=== PATIENT | female | born 1955 | race Caucasian/White ===

== ENCOUNTER → 2016-03-22 | Outpatient (CLI) | payer SELFPAY ==
[~2016-03-22] MED LIST: ASPI1TAB69 PO; ATOR1TAB18 PO; CLON0.5T PO; FLUO10CA5 PO; LEVO50TA4 PO; LISI-515 PO; METF500T PO; NORC5TAB PO; PROM12.54 PO; RANI150C PO; VALP250C PO
[2016-03-22 12:13] LABS: BASOPHIL % 0.9 % (0.0-2.0); EOSINOPHIL # 0.1 TH/MM3 (0-0.4); EOSINOPHIL % 2.6 % (0.0-4.0); HEMATOCRIT 39.8 % (35.0-46.0); HEMO FLAGS DIFF FINAL; LYMPH % 36.7 % (9.0-44.0); MEAN CORPUSCULAR HEMOGLOBIN 26.8 PG (27.0-34.0); MEAN CORPUSCULAR HGB CONC 32.7 % (32.0-36.0); MONO % 5.7 % (0.0-8.0); NEUT % 54.1 % (16.0-70.0); PLATELET COUNT 311 TH/MM3 (150-450); RED BLOOD COUNT 4.86 MIL/MM3 (4.00-5.30); RED CELL DISTRIBUTION WIDTH 14.5 % (11.6-17.2); WHITE BLOOD COUNT 5.5 TH/MM3 (4.0-11.0)
[2016-03-22 12:57] LABS: ALKALINE PHOSPHATASE 60 U/L (45-117); ALT (GPT) 15 U/L (10-53); ANION GAP 8 MEQ/L (5-15); AST (GOT) 11 U/L (15-37); BICARBONATE 31.7 MEQ/L (21.0-32.0); BLOOD UREA NITROGEN 11 MG/DL (7-18); CHLORIDE 101 MEQ/L (98-107); GLOMERULAR FILTRATION RATE 100 ML/MIN (>89); GLUCOSE,FASTING 83 MG/DL (74-99); POTASSIUM 3.5 MEQ/L (3.5-5.1); SODIUM (NA) 141 MEQ/L (136-145); TOTAL BILIRUBIN ADULT 0.6 MG/DL (0.2-1.0)
[2016-03-22 16:59] LABS: HEMOGLOBIN A1b 0.9 %; HEMOGLOBIN F 0.8 %
[2016-03-22 17:00] LABS: HEMOGLOBIN Ao 85.5 %; HEMOGLOBIN P3 3.7 %
== END ==
LOC: ELAB 09:48
PROVIDERS: ATTEND Internal Medicine Geriatric Medicine
DX: E03.9 Hypothyroidism, unspecified (principal); E11.9 Type 2 diabetes mellitus without complications
CPT/HCPCS: 36415; 80053; 83036; 84443; 85025

== ENCOUNTER → 2017-01-19 | Outpatient (CLI) | payer MEDICAID, OTHER ==
[~2017-01-19] MED LIST changes: +ASPI-516 CHEW; -ASPI1TAB69 PO; -ATOR1TAB18 PO; +ATOR80TA45 PO; -CLON0.5T PO; +FLU60SYR17 IM; -FLUO10CA5 PO; -METF500T PO
[2017-01-19 11:54] LABS: MEAN CELL VOLUME 85.6 FL (80.0-100.0); MEAN CORPUSCULAR HGB CONC 32.6 % (32.0-36.0); PLATELET COUNT 296 TH/MM3 (150-450); RED BLOOD COUNT 4.67 MIL/MM3 (4.00-5.30); RED CELL DISTRIBUTION WIDTH 14.4 % (11.6-17.2); REVIEW FLAG FINAL; WHITE BLOOD COUNT 9.8 TH/MM3 (4.0-11.0)
[2017-01-19 11:58] LABS: AST (GOT) 15 U/L (15-37)
[2017-01-19 12:02] LABS: ALKALINE PHOSPHATASE 70 U/L (45-117); ALT (GPT) 16 U/L (10-53); INDIRECT BILIRUBIN 0.3 MG/DL (0.0-0.8); TOTAL BILIRUBIN ADULT 0.4 MG/DL (0.2-1.0)
[2017-01-19 19:45] LABS: HEMOGLOBIN A1b 0.9 %; HEMOGLOBIN Ao 84.3 %; HEMOGLOBIN F 0.9 %; HEMOGLOBIN LA1C 2.2 %
== END ==
LOC: ELAB 09:57
PROVIDERS: ATTEND Specialist
DX: E11.9 Type 2 diabetes mellitus without complications (principal); Z51.81 Encounter for therapeutic drug level monitoring; G60.9 Hereditary and idiopathic neuropathy, unspecified; R53.81 Other malaise
CPT/HCPCS: 36415; 80076; 80164; 83036; 85027

== ENCOUNTER 2017-05-06 13:01 | Emergency (ER) | payer MEDICARE, MEDICAID ==
[~2017-05-06] VITALS: Ht 152.4 cm; Wt 59.5 kg
[~2017-05-06 13:01] MED LIST changes: -FLU60SYR17 IM; +TRAM50TA PO
[2017-05-06 13:02] VITALS: BP 137/74; PULSE 76; RESP 12; TEMP 98.2; O2SAT 97
[2017-05-06 13:24] VITALS: BP 175/70; PULSE 66; RESP 18; O2SAT 97
[2017-05-06] MEDS ORDERED: FLUO10TA PO (13:29)
[2017-05-06] MEDS ORDERED: SODIUM CHLORIDE 0.9% FLUSH 10 ML FLUSH IVF PRN (14:30)
--- NOTE | 2017-05-06 14:36 | PD ---
HPI Chief Complaint: General Weakness Time Seen by Provider: 13:43 Travel History International Travel<30 days: No Contact w/Intl Traveler<30days: No Traveled to known affect area: No History of Present Illness HPI Patient is a 61-year-old female with a history of stroke leaving left-sided deficits presents emergency department for evaluation of generalized weakness for the past 48 hours. Patient states that she did not think anything of it and when she told her son about it she recommended that he come to the emergency department to be checked out. Patient denies any pain anywhere, denies any new focalized weakness. States that she has significant right-sided deficits and right leg and arm deficits after her stroke versus some time ago. States she is usually wheelchair bound. Denies any fevers cough congestion nausea vomiting dysuria. States that she is fairly incontinent of stool at baseline and does wear a diaper. She states occasionally she has been incontinent of urine. States symptoms are mild, duration context and associated signs and symptoms as above per [facility] Past Medical History Hx Anticoagulant Therapy: No Arthritis: Yes (bilateral hands) Asthma: No Autoimmune Disease: No Blood Disorders: No Anxiety: Yes Depression: Yes Heart Rhythm Problems: No Cancer: Yes (neck cancer and nonhodgkins lymphoma ) Cardiovascular Problems: Yes (HTN) High Cholesterol: Yes (hyperlididemia) Chemotherapy: Yes Chest Pain: Yes Congestive Heart Failure: No COPD: No Cerebrovascular Accident: Yes (2014) Diabetes: Yes Diminished Hearing: No Endocrine: Yes Gastrointestinal Disorders: Yes GERD: Yes Genitourinary: Yes (stress incontinence) Headaches: Yes (occasionally ) Hiatal Hernia: No Hypertension: Yes Immune Disorder: No Kidney Stones: No Musculoskeletal: Yes Neurologic: Yes (CVA (left posterior parietal cortical infarct), spinal mennigitis (2013)) Psychiatric: Yes Reproductive: No Respiratory: No Migraines: Yes (occasionally) Radiation Therapy: Yes (with the neck cancer) Renal Failure: No Seizures: Yes Sickle Cell Disease: No Sleep Apnea: No Thyroid Disease: Yes (hypothyroidism) Ulcer: No ?: Unknown : 2 Para: 2 Miscarriage: 0 : 0 Past Surgical History Abdominal Surgery: Yes (gallbladder removed) AICD: No Appendectomy: Yes Arteriovenous Shunt: No Cardiac Surgery: No Cholecystectomy: Yes Ear Surgery: No Endocrine Surgery: No Eye Surgery: No Genitourinary Surgery: No Gynecologic Surgery: Yes (hysterectomy) Hysterectomy: Yes Insulin Pump: No Joint Replacement: Yes (right ankle) Oral Surgery: No Pacemaker: No Thoracic Surgery: No Other Surgery: Yes Social History Alcohol Use: No Tobacco Use: Yes (half pack a day ) Substance Use: No Allergies-Medications (Allergen,Severity, Reaction): Coded Allergies: penicillin G (Unverified Allergy, Intermediate, RASH, 05/06/17) Reported Meds & Prescriptions Reported Meds & Active Scripts Active Keflex (Cephalexin) 500 Mg Capsule 500 Mg PO Q6H 7 Days Atorvastatin (Atorvastatin Calcium) 80 Mg Tab 80 Mg PO HS Lisinopril 20 Mg Tab 20 Mg PO DAILY Ranitidine (Ranitidine HCl) 150 Mg Cap 150 Mg PO HS Levothyroxine (Levothyroxine Sodium) 50 Mcg Tab 50 Mcg PO DAILY [place] (Hydrocodone-Acetaminophen) 5-325 mg Tab 1 Tab PO Q6H PRN Reported Fluoxetine (Fluoxetine HCl) 10 Mg Tab 20 Mg PO DAILY Aspirin 81 Mg Chew 81 Mg CHEW DAILY Valproic Acid 250 Mg Cap 500 Mg PO BID Review of Systems Except as stated in HPI: all other systems reviewed are Neg Physical Exam Narrative GENERAL: Well-developed well-nourished, no obvious distress, quite pleasant SKIN: Focused skin assessment warm/dry. HEAD: Atraumatic. Normocephalic. EYES: Pupils equal and round. No scleral icterus. No injection or drainage. ENT: No nasal bleeding or discharge. Mucous membranes pink and moist. NECK: Trachea midline. No JVD. CARDIOVASCULAR: Regular rate and rhythm. No murmur appreciated. RESPIRATORY: No accessory muscle use. Clear to auscultation. Breath sounds equal bilaterally. GASTROINTESTINAL: Abdomen soft, non-tender, nondistended. Hepatic and splenic margins not palpable. MUSCULOSKELETAL: No obvious deformities. No clubbing. No cyanosis. No edema. NEUROLOGICAL: Awake and alert. Fairly dense right upper and lower extremity weakness, no obvious cranial nerve deficit. Sensation intact. Left upper and left lower extremity have 5 out of 5 strength PSYCHIATRIC: Appropriate mood and affect; insight and judgment normal. Data Data Last Documented VS Vital Signs Date Time Temp Pulse Resp B/P (MAP) Pulse Ox O2 Delivery O2 Flow Rate FiO2 05/06/17 16:24 05/06/17 15:06 98 Room Air 05/06/17 13:24 66 18 05/06/17 13:02 98.2 Orders Orders Complete Blood Count With Diff (05/06/17 14:27) Comprehensive Metabolic Panel (05/06/17 14:27) Magnesium (Mg) (05/06/17 14:27) Prothrombin Time / Inr (Pt) (05/06/17 14:27) Act Partial Throm Time (Ptt) (05/06/17 14:27) Troponin I (05/06/17 14:27) Chest, Single Ap (05/06/17 14:27) Ecg Monitoring (05/06/17 14:27) Iv Access Insert/Monitor (05/06/17 14:27) Oximetry (05/06/17 14:27) Oxygen Administration (05/06/17 14:27) Sodium Chloride 0.9% Flush (Ns Flush) (05/06/17 14:30) Urinalysis - C+S If Indicated (05/06/17 14:27) Us Leg Venous Doppler (05/06/17 14:47) Urine Culture (05/06/17 14:50) Ed Discharge Order (05/06/17 15:41) Labs Laboratory Tests Test 05/06/17 14:39 05/06/17 14:50 White Blood Count 10.5 TH/MM3 Red Blood Count 4.97 MIL/MM3 Hemoglobin 13.9 GM/DL Hematocrit 41.4 % Mean Corpuscular Volume 83.3 FL Mean Corpuscular Hemoglobin 28.0 PG Mean Corpuscular Hemoglobin Concent 33.6 % Red Cell Distribution Width 14.9 % Platelet Count 302 TH/MM3 Mean Platelet Volume 9.3 FL Neutrophils (%) (Auto) 67.8 % Lymphocytes (%) (Auto) 25.2 % Monocytes (%) (Auto) 4.4 % Eosinophils (%) (Auto) 2.0 % Basophils (%) (Auto) 0.6 % Neutrophils # (Auto) 7.1 TH/MM3 Lymphocytes # (Auto) 2.6 TH/MM3 Monocytes # (Auto) 0.5 TH/MM3 Eosinophils # (Auto) 0.2 TH/MM3 Basophils # (Auto) 0.1 TH/MM3 CBC Comment DIFF FINAL Differential Comment Prothrombin Time 12.9 SEC Prothromb Time International Ratio 1.3 RATIO Activated Partial Thromboplast Time 27.3 SEC Blood Urea Nitrogen 14 MG/DL Creatinine 0.62 MG/DL Random Glucose 82 MG/DL Total Protein 7.1 GM/DL Albumin 3.1 GM/DL Calcium Level 8.9 MG/DL Magnesium Level 2.1 MG/DL Alkaline Phosphatase 74 U/L Aspartate Amino Transf (AST/SGOT) 16 U/L Alanine Aminotransferase (ALT/SGPT) 9 U/L Total Bilirubin 0.5 MG/DL Sodium Level 138 MEQ/L Potassium Level 3.7 MEQ/L Chloride Level 102 MEQ/L Carbon Dioxide Level 29.2 MEQ/L Anion Gap 7 MEQ/L Estimat Glomerular Filtration Rate 98 ML/MIN Troponin I 0.04 NG/ML Urine Color LIGHT-YELLOW Urine Turbidity CLEAR Urine pH 6.0 Urine Specific [place] 1.004 Urine Protein NEG mg/dL Urine Glucose (UA) NEG mg/dL Urine Ketones NEG mg/dL Urine Occult Blood NEG Urine Nitrite POS Urine Bilirubin NEG Urine Urobilinogen LESS THAN 2.0 MG/DL Urine Leukocyte Esterase SMALL Urine RBC 1 /hpf Urine WBC 2 /hpf Urine Squamous Epithelial Cells <1 /hpf Urine Bacteria OCC /hpf Microscopic Urinalysis Comment CULTURE INDICATED MDM Medical Decision Making Medical Screen Exam Complete: Yes Emergency Medical Condition: Yes Differential Diagnosis UTI, generalized weakness, acute stroke unlikely, electrolyte abnormality, acute kidney injury, dehydration, Narrative Course Patient room to the emergency department, labs are only indicative of mild urinary tract infection, otherwise reassuring. No indication for CAT scan imaging. His chest x-ray negative. Patient was reassured as well as her granddaughter. She stable for discharge. Discussed empiric UTI therapy follow- up with a primary care physician and return to ED criteria. Diagnosis Primary Impression: Generalized weakness Additional Impression: Urinary tract infection Med/Other Pt SpecificInfo: Prescription(s) given Scripts Cephalexin (Keflex) 500 Mg Capsule 500 MG PO Q6H for Infection for 7 Days, #28 CAP 0 Refills Prov: Shawn Chatterjee MD 05/06/17 Disposition: 01 DISCHARGE HOME Condition: Stable Shawn Chatterjee MD May 06, 2017 14:36
--- NOTE | 2017-05-06 15:02 | RADRPT ---
EXAM DATE/TIME: 05/06/2017 14:41 [facility] COMPARISON: CHEST SINGLE AP, February 11, 2016, 14:41. INDICATIONS : Chest pain, dizziness, and lightheaded. MEDICAL HISTORY : Stroke. SURGICAL HISTORY : None. ENCOUNTER: Initial ACUITY: 4 - 6 days PAIN SCORE: 2/10 LOCATION: Bilateral chest FINDINGS: A single view of the chest demonstrates the lungs to be symmetrically aerated without evidence of mas s, infiltrate or effusion. The cardiomediastinal contours are unremarkable. Osseous structures are intact. CONCLUSION: Normal examination for a patient of this age. No significant change has occurred. Dwight Rendon MD on May 06, 2017 at 15:00 Board Certified Radiologist. This report was verified electronically.
[2017-05-06 15:05] LABS: AUTOMATED NEUTROPHIL # 7.1 TH/MM3 (1.8-7.7); BASOPHIL # 0.1 TH/MM3 (0-0.2); BASOPHIL % 0.6 % (0.0-2.0); EOSINOPHIL # 0.2 TH/MM3 (0-0.4); HEMATOCRIT 41.4 % (35.0-46.0); HEMOGLOBIN 13.9 GM/DL (11.6-15.3); LYMPH % 25.2 % (9.0-44.0); LYMPHOCYTE # 2.6 TH/MM3 (1.0-4.8); MEAN CELL VOLUME 83.3 FL (80.0-100.0); MEAN CORPUSCULAR HGB CONC 33.6 % (32.0-36.0); MEAN PLATELET VOLUME 9.3 FL (7.0-11.0); MONO % 4.4 % (0.0-8.0); MONOCYTE # 0.5 TH/MM3 (0-0.9); NEUT % 67.8 % (16.0-70.0); PLATELET COUNT 302 TH/MM3 (150-450); RED BLOOD COUNT 4.97 MIL/MM3 (4.00-5.30); RED CELL DISTRIBUTION WIDTH 14.9 % (11.6-17.2); WHITE BLOOD COUNT 10.5 TH/MM3 (4.0-11.0)
[2017-05-06 15:13] LABS: BACTERIA, URINE OCC /hpf; BILIRUBIN, URINE NEG (NEG); BLOOD, URINE NEG (NEG); GLUCOSE,URINE NEG (NEG); KETONE, URINE NEG (NEG); NITRITE,URINE POS (NEG); SQUAMOUS EPITHELIAL CELL URINE <1 /hpf (0-5); URINE COLOR LIGHT-YELLOW (YELLW/STRAW); URINE LEUKOCYTE ESTERASE SMALL (NEG)
[2017-05-06 15:22] LABS: ALBUMIN 3.1 GM/DL (3.4-5.0); ALT (GPT) 9 U/L (10-53); AST (GOT) 16 U/L (15-37); BICARBONATE 29.2 MEQ/L (21.0-32.0); BLOOD UREA NITROGEN 14 MG/DL (7-18); CALCIUM 8.9 MG/DL (8.5-10.1); CHLORIDE 102 MEQ/L (98-107); CREATININE 0.62 MG/DL (0.50-1.00); GLOMERULAR FILTRATION RATE 98 ML/MIN (>89); GLUCOSE,RANDOM 82 MG/DL (74-106); MAGNESIUM 2.1 MG/DL (1.5-2.5); SODIUM (NA) 138 MEQ/L (136-145)
--- NOTE | 2017-05-06 15:24 | RADRPT ---
EXAM DATE/TIME: 05/06/2017 15:00 [facility] COMPARISON: No previous studies available for comparison. INDICATIONS : Right leg pain. MEDICAL HISTORY : Hypercholesterolemia. Hypertension. Gastroesophageal reflux disease. Hypothyroidism. Cerebrovascul ar accident. . Arthritis. Diabetes. PTSD. Depression. Anxiety. Neck cancer. Non hodgkins lym phoma. Radiation therapy. Chemotherapy. Measles. SURGICAL HISTORY : Cholecystectomy. Appendectomy. Hysterectomy. ENCOUNTER: Initial ACUITY: 1 day PAIN SCORE: 1/10 LOCATION: Right leg. TECHNIQUE: Venous ultrasound of the leg was performed from the inguinal ligament to the proximal calf. Real-miguelito e, color Doppler and spectral tracing, compression and augmentation techniques were used. FINDINGS: There is normal compressibility of the deep venous system from the inguinal region to the proximal ca lf. No echogenic clot is seen in the lumen of the common femoral, femoral, popliteal, and posterior tibial veins. There is a normal response of the venous system to proximal and distal augmentation an d respiration. CONCLUSION: No evidence of DVT. Dwight Rendon MD on May 06, 2017 at 15:23 Board Certified Radiologist. This report was verified electronically.
[2017-05-06 15:26] LABS: ALKALINE PHOSPHATASE 74 U/L (45-117); TOTAL BILIRUBIN ADULT 0.5 MG/DL (0.2-1.0); TOTAL PROTEIN 7.1 GM/DL (6.4-8.2); TROPONIN I 0.04 NG/ML (0.02-0.05)
[2017-05-06 15:27] LABS: INTERNATIONAL NORMALIZED RATIO 1.3 RATIO; PROTHROMBIN TIME - PATIENT 12.9 SEC (9.8-11.6)
[2017-05-06] MEDS ORDERED: CEPH-460 PO ×2 (15:41→15:43)
== END 2017-05-06 16:30 | disposition home or self-care (01) ==
LOC: NEPE 13:01
DX: R53.1 Weakness (principal); N39.0 Urinary tract infection, site not specified; E03.9 Hypothyroidism, unspecified; E78.00 Pure hypercholesterolemia, unspecified; M79.604 Pain in right leg; I10 Essential (primary) hypertension; K21.9 Gastro-esophageal reflux disease without esophagitis; F17.200 Nicotine dependence, unspecified, uncomplicated; Z79.899 Other long term (current) drug therapy
CPT/HCPCS: 71045; 80053; 81001; 83735; 84484; 85025; 85610; 85730; 87077; 87086; 87186; 93971; 99285

== ENCOUNTER → 2017-07-18 | Outpatient (CLI) | payer MEDICAID, MEDICARE ==
[~2017-07-18] MED LIST changes: +CEPH-460 PO; +FLUO10TA PO; -PROM12.54 PO; -TRAM50TA PO
[2017-07-18 12:11] LABS: AUTOMATED NEUTROPHIL # 5.2 TH/MM3 (1.8-7.7); BASOPHIL # 0.1 TH/MM3 (0-0.2); BASOPHIL % 0.8 % (0.0-2.0); EOSINOPHIL # 0.2 TH/MM3 (0-0.4); EOSINOPHIL % 2.8 % (0.0-4.0); HEMATOCRIT 38.8 % (35.0-46.0); HEMOGLOBIN 12.9 GM/DL (11.6-15.3); LYMPH % 26.4 % (9.0-44.0); LYMPHOCYTE # 2.1 TH/MM3 (1.0-4.8); MEAN CELL VOLUME 83.4 FL (80.0-100.0); MEAN CORPUSCULAR HEMOGLOBIN 27.8 PG (27.0-34.0); MEAN CORPUSCULAR HGB CONC 33.3 % (32.0-36.0); MEAN PLATELET VOLUME 9.7 FL (7.0-11.0); MONO % 5.8 % (0.0-8.0); MONOCYTE # 0.5 TH/MM3 (0-0.9); NEUT % 64.2 % (16.0-70.0); PLATELET COUNT 333 TH/MM3 (150-450); RED BLOOD COUNT 4.65 MIL/MM3 (4.00-5.30); RED CELL DISTRIBUTION WIDTH 14.7 % (11.6-17.2)
[2017-07-18 12:19] LABS: ALBUMIN 2.9 GM/DL (3.4-5.0); AST (GOT) 8 U/L (15-37); BICARBONATE 31.2 MEQ/L (21.0-32.0); BLOOD UREA NITROGEN 12 MG/DL (7-18); CALCIUM 8.8 MG/DL (8.5-10.1); CHLORIDE 100 MEQ/L (98-107); CREATININE 0.67 MG/DL (0.50-1.00); GLOMERULAR FILTRATION RATE 89 ML/MIN (>89); GLUCOSE,FASTING 111 MG/DL (74-99); SODIUM (NA) 138 MEQ/L (136-145)
[2017-07-18 12:20] LABS: CHOLESTEROL 122 MG/DL (120-200)
[2017-07-18 12:24] LABS: ALKALINE PHOSPHATASE 68 U/L (45-117); ALT (GPT) 12 U/L (10-53); CHOLESTEROL/ HDL RATIO 3.74 RATIO; HDL CHOLESTEROL 32.6 MG/DL (40.0-60.0); LDL CHOLESTEROL 61 MG/DL (0-99); TOTAL BILIRUBIN ADULT 0.4 MG/DL (0.2-1.0); TOTAL PROTEIN 6.5 GM/DL (6.4-8.2); TRIGLYCERIDES 144 MG/DL (42-150)
[2017-07-18 17:55] LABS: HEMOGLOBIN A1C 5.9 % (4.3-6.0)
== END ==
LOC: ELAB 09:47
PROVIDERS: ATTEND Family Medicine
DX: I10 Essential (primary) hypertension (principal); E11.9 Type 2 diabetes mellitus without complications
CPT/HCPCS: 36415; 80053; 80061; 82043; 83036; 85025